=== PATIENT | female | born 1975 | race Caucasian/White ===

== ENCOUNTER 2020-10-28 11:39 | Emergency (ER) | payer OTHER ==
[~2020-10-28] VITALS: Ht 160 cm; Wt 61.2 kg
[2020-11-20] MEDS ORDERED: ADDERALL 20 MG20 MG PO (08:11)
[2020-11-20] MEDS ORDERED: KETO10TA2 PO (09:49)
[2020-11-20] MEDS ORDERED: ORPHENADRINE C100 MG PO (09:49)
== END 2020-10-28 14:45 | disposition home or self-care (01) ==
LOC: ER 11:39
DX: S60.512A Abrasion of left hand, initial encounter (principal); S40.812A Abrasion of left upper arm, initial encounter; S40.811A Abrasion of right upper arm, initial encounter; W55.03XA Scratched by cat, initial encounter; Y93.89 Activity, other specified; Y92.89 Other specified places as the place of occurrence of the external cause; Y99.8 Other external cause status

== ENCOUNTER → 2020-11-20 | Emergency (ER) | payer OTHER ==
[~2020-11-20] VITALS: Ht 160 cm; Wt 59.0 kg
[~2020-11-20] MED LIST: ADDERALL 20 MG20 MG PO; KETO10TA2 PO; ORPHENADRINE C100 MG PO
== END | disposition home or self-care (01) ==
LOC: ER 08:06
DX: M54.5 Low back pain (principal)

== ENCOUNTER 2021-02-05 19:47 | Emergency (ER) | payer OTHER ==
[~2021-02-05] VITALS: Ht 160 cm; Wt 59.0 kg
== END 2021-02-05 21:13 | disposition home or self-care (01) ==
LOC: ER 19:47
DX: S00.33XA Contusion of nose, initial encounter (principal); W22.8XXA Striking against or struck by other objects, initial encounter; Y93.73 Activity, racquet and hand sports; Y92.89 Other specified places as the place of occurrence of the external cause; Y99.8 Other external cause status

== ENCOUNTER 2021-02-24 18:58 | Emergency (ER) | payer OTHER ==
[~2021-02-24] VITALS: Ht 160 cm; Wt 59.0 kg
== END 2021-02-24 22:31 | disposition home or self-care (01) ==
LOC: ER 18:58
DX: E86.0 Dehydration (principal)

== ENCOUNTER 2021-05-15 14:01 | Emergency (ER) | payer OTHER ==
[~2021-05-15] VITALS: Ht 160 cm; Wt 59.0 kg
== END 2021-05-15 18:37 | disposition home or self-care (01) ==
LOC: ER 14:01
DX: S33.5XXA Sprain of ligaments of lumbar spine, initial encounter (principal); X50.3XXA Overexertion from repetitive movements, initial encounter; Y93.89 Activity, other specified; Y92.89 Other specified places as the place of occurrence of the external cause; Y99.8 Other external cause status